=== PATIENT | female | born 1945 | race Caucasian/White ===

== ENCOUNTER 2018-10-15 01:49 | Emergency (ER) | payer BC | END 2018-10-15 10:15 | disposition home or self-care (01) | LOC: E/R 01:49 | DX: R51 Headache (principal); R40.2142 Coma scale, eyes open, spontaneous, at arrival to emergency department; R40.2352 Coma scale, best motor response, localizes pain, at arrival to emergency department; R40.2242 Coma scale, best verbal response, confused conversation, at arrival to emergency department | CPT/HCPCS: 70450; 72125; 99284-25 ==